=== PATIENT | female | born 1985 | race Caucasian/White ===

== ENCOUNTER 2019-06-15 07:45 | Inpatient (IN) | payer OTHER ==
[2019-06-15] MEDS ORDERED: CITRIC ACID/SODIUM CITRATE 30 ML UNIT-DOSE CUP PO ONE (08:00)
[2019-06-15] MEDS ORDERED: ELECTROLYTE-148 SOLN 1,000 ML IV SCH (08:00)
[2019-06-15] MEDS: ELECTROLYTE-148 SOLN 1,000 ML IV SCH (08:30)
[2019-06-15 08:57] VITALS: BMI 36.1
--- NOTE | 2019-06-15 09:18 | HP ---
Past Medical History - Admission Chief Complaint: repeat lt cs History of Present Illness: none History Source: Patient Limitations to Obtaining History: No Limitations - Past Medical History CHILD DAY CARE PROVIDER: No: Alzheimer's, CVA, Dementia, Migraine, Multiple Sclerosis, Peripheral Neuropathy, Parkinson's, Seizure, Syncope, TIA, Vertigo, Other Cardiovascular: No: AFIB, Aneurysm, Aortic Insufficiency, Aortic Stenosis, CAD, CHF, Deep Vein Thrombosis, HTN, Hyperlipdemia, [place], Mitral Insufficiency, Mitral Stenosis, Murmur, Pulmonary Hypertension, Other Pulmonary: No: Asthma, Bronchitis, Cancer, COPD, O2 Dependent, Pneumonia, Previously Intubated, Pulmonary Embolus, Pulmonary Fibrosis, Sleep Apnea, Other Gastrointestinal: No: Ascites, Cancer, Constipation, Crohn's Disease, Diverticulitis, Diverticulosis, Esophageal Varices, Gastritis, GERD, GI Bleed, Hemorrhoids, Hiatal Hernia, Inflamatory Bowel Disease, Irritable Bowel Disease, Pancreatitis, Peptic Ulcer Disease, Ulcerative Colitis, Other Hepatobiliary: No: Cirrhosis, Cholelithiasis, Cholecystitis, Choledocholithiasis , Hepatitis A, Hepatitis B, Hepatitis C, Other Renal/: No: Renal Failure, Renal Inusuff, BPH, Cancer, Hematuria, Hemodialysis , Neurogenic Bladder, Renal Calculi, UTI, Other Reproductive: No: Ectopic , Endometriosis, Fibroids, PID, Polycystic Ovary Syndrome, Postmenopausal, Other ...: 3 ...Para: 1 ...Term: 1 ...: 0 ...Spon : 1 ...Induced : 0 ...Multiple Gestation: 0 ...LMP: 09/15/18 ... Weeks Gestation by Dates: 39.0 ...EDC by Dates: 06/22/19 Heme/Onc: No: Anemia, B12 Deficiency, Bleeding Disorder, Cancer, Current Chemotherapy, Current Radiation Therapy, Hemochromatosis, Hypercoaguable State, Myeloproliferative Synd, Sickle Cell Disease, Sickle Cell Trait, Thrombocytopenia, Other Infectious Disease: No: AIDS, C-Diff, Herpes Zoster, HIV, MRSA, STD's, Tuberculosis, VREF, Other Psych: No: Addictions, Anxiety, Bipolar, Depression, Panic, Psychosis, Schizophrenia, Other Musculoskeletal: No: Bursitis, Chronic low back pain, Hemiparesis, Hemiplegia, Osteoarthritis, Paraplegia, Other ENT: No: Allergic Rhinitis, Sinusitis, Other Endocrine: No: Genes[place]'s Disease, Samuel's Disease, Diabetes Insipidus, Diabetes Mellitus, Hyperparathyroidism, Hyperthyroidism, Hypothyroidism, Osteopenia, SIADH, Other Dermatology: No: Basal Cell, Cellulitis, Eczema, Melanoma, Psoriasis, Squamous Cell, Other - Past Surgical History Past Surgical History: No: None, AAA Repair, AICD, Amputation, Appendectomy, Arthrosocopy, AV Fistula/Graft, Bariatric Surgery, Breast Biopsy, Bypass, CABG, Carotid Endarterectomy, Cataract Removal, Cholecystectomy, Colectomy, Colonoscopy, Colostomy, Craniotomy, , Cystectomy, Hernia Repair, Hysterectomy, Ileal Conduit, Ileosotomy, Joint Replacement, Kidney Transplant, Laminectomy, Liver Transplant, Mastectomy, Nephrectomy, Oopherectomy, Orchiectomy, Permanent Pacemaker, Prostatectomy, Splenectomy, Stent, Thoracotomy , TURP, Tonsillectomy, Tubal Ligation, Upper Endoscopy, Valve Replacement, Vasectomy, Vein Stripping/Ligation Hx Myomectomy: No Hx Transabdominal Cerclage: No - Advance Directives Advance Directives: Yes: Living Will - Smoking History Smoking history: Never smoked Have you smoked in the past 12 months: No - Alcohol/Substance Use Hx Alcohol Use: No History of Substance Use: reports: None - Social History Usual Living Arrangement: Yes: With Spouse Do you think of yourself as: Declined to answer ADL: Independent History of Recent Travel: No Home Medications - Allergies Allergies/Adverse Reactions: Allergies Allergy/AdvReac Type Severity Reaction Status Date / Time No Known Drug Allergies Allergy Verified 06/15/19 08:27 - Home Medications Home Medications: Ambulatory Orders Vitamins (Sjr) - 1 tab PO DAILY 06/15/19 Family Medical History Family History: Denies Review of Systems - Review of Systems Constitutional: reports: No Symptoms Eyes: reports: No Symptoms HENT: reports: No Symptoms Neck: reports: No Symptoms Cardiovascular: reports: No Symptoms Respiratory: reports: No Symptoms Gastrointestinal: reports: No Symptoms Genitourinary: reports: No Symptoms Breasts: reports: No Symptoms Reported Musculoskeletal: reports: No Symptoms Integumentary: reports: No Symptoms Neurological: reports: No Symptoms Endocrine: reports: No Symptoms Hematology/Lymphatic: reports: No Symptoms Psychiatric: reports: No Symptoms Physical Exam - Maternity Vital Signs: Vital Signs Temperature 98.3 F 06/15/19 08:51 Pulse Rate 78 10/03/19 08:51 Respiratory Rate 20 06/15/19 08:51 Blood Pressure 114/74 06/15/19 08:51 O2 Sat by Pulse Oximetry (%) Constitutional: Yes: Well Nourished, No Distress, Calm Eyes: Yes: WNL, Conjunctiva Clear, EOM Intact HENT: Yes: WNL, Atraumatic, Normocephalic Neck: Yes: WNL, Supple, Trachea Midline Cardiovascular: Yes: WNL, Regular Rate and Rhythm Lungs: Clear to auscultation Breast(s): Yes: WNL - Abdominal Exam/OB Fundal Height: 36 Number of Fetuses: Single Presentation: Vertex Contractions: Yes Regularity: Irregular Intensity: Mild Monitor Mode: External Heart Rate Location: [facility] Category: I Accelerations: Uniform Decelerations: None - Vaginal Exam/OB Vaginal Bleediing: No Speculum Exam: No Dilatation (cm): 1 cm Effacement (%): 20 % Amniotic Membrane Status: Intact Presentation: Vertex/Position Station: -3 - Physical Exam Musculoskeletal: Yes: WNL Extremities: Yes: WNL Edema: Yes Edema: LUE: 1+, RUE: 1+, LLE: 1+ Integumentary: Yes: WNL Deep Tendon Reflex Grade: Normal +2 ...Motor Strength: WNL Psychiatric: Yes: WNL, Alert, Oriented Assessment/Plan for repeat c s
[2019-06-15] MEDS ORDERED: morphine SULFATE/PF 0.5 MG/ML (2cc Syringe - QUVA) EP ONE (09:24)
[2019-06-15] MEDS ORDERED: ONDANSETRON 4 MG/2 ML VIAL IVPUSH PRN (09:24)
[2019-06-15] MEDS ORDERED: morphine SULFATE/PF 0.5 MG/ML (2cc Syringe - QUVA) ONE (10:03)
[2019-06-15] MEDS ORDERED: ceFAZolin SODIUM 1 GM VIAL ONE (10:14)
[2019-06-15] MEDS ORDERED: PHENYLEPHRINE HCL 10 MG/1 ML SINGLE DOSE VIAL ONE (10:16)
[2019-06-15] MEDS ORDERED: OXYTOCIN 20 UNITS in 0.9% NS 20 UNIT/1,000 ML INFUS.BAG IV ONE ×2 (10:22→11:58)
[2019-06-15] MEDS ORDERED: oxyCODONE HCL 5 MG TABLET PO PRN (11:37)
[2019-06-15] MEDS ORDERED: METHYLERGONOVINE MALEATE 0.2 MG/1 ML AMP IM PRN (11:37)
[2019-06-15] MEDS ORDERED: IBUPROFEN 600 MG TABLET (FP) PO PRN (11:37)
[2019-06-15] MEDS ORDERED: SENNOSIDES/DOCUSATE COMBO (SENNA PLUS) TABLET (UD) PO PRN (11:37)
--- NOTE | 2019-06-15 11:42 | OP ---
Operative Note - Note: Operative Date: 06/15/19 Pre-Operative Diagnosis: repeat c s lt Operation: repeat lt c s Findings: can x 2 tight Post-Operative Diagnosis: Same as Pre-op Surgeon: Reid Moraes Machine Dyer: Chaka Castañeda Anesthesiologist/CHIROPRACTOR ASSISTANT: Varun Santana Anesthesia: Spinal Estimated Blood Loss (mls): 450 Operative Report Dictated: Yes
[2019-06-15] MEDS: OXYTOCIN 20 UNITS in 0.9% NS 20 UNIT/1,000 ML INFUS.BAG IV SCH ×2 (12:20→20:37)
--- NOTE | 2019-06-15 12:51 | OP ---
DATE OF OPERATION: 06/15/2019 PREOPERATIVE DIAGNOSES: Previous low transverse section and previous history of abdominoplasty and previous history of gastric bypass. POSTOPERATIVE DIAGNOSES: Previous low transverse section and previous history of abdominoplasty and previous history of gastric bypass, repeat low transverse section. PROCEDURE: Repeat low transverse section. SURGEON: Reid Moraes MD ENGINE MANAGER: JUAN PABLO Bajwa ANESTHESIA: Spinal anesthesia by Varun Santana MD. FINDINGS: There was cord around the neck x2, tight. INDICATION: This is a 34-year-old female patient, 39 weeks , previous history of low transverse section, previous history of abdominoplasty, and constantly complaining of a lot of abdominal pain and pelvic pain because the abdomen was very stretched, tight, and the patient's history of a gastric bypass. So, patient finally reached 39 weeks and taken to the OR for a repeat low transverse section. So, patient was placed on the operating table in supine position after spinal anesthesia was obtained. The patient's abdomen and pelvis were prepped and draped in the usual sterile manner. Following the Pfannenstiel incision, incision was made through the skin and subcutaneous tissue until the fascia was nicked in the midline. The fascia extended bilaterally. Intraperitoneal cavity was entered. We did not see blue Prolene suture; so, fascia had been done by Vicryl in the past. No Prolene suture was seen. So, fascia was extended bilaterally. The intraperitoneal cavity was entered. Bladder flap was not created. Low transverse segment was entered. Baby was delivered from LOT position. Cord around the neck x2, tight was seen. So, baby was handed over to the trade analyst after umbilical cord was doubly clamped and cut. Cord blood gases obtained. Placenta was removed. Uterus was closed in single layer, first layer interlocking Vicryl sutures. Good hemostasis. Both the gutters were cleaned. Both ovaries, fallopian tubes, and uterus were within normal limits. No complications. Patient tolerated the procedure well, draining clear urine. Blood loss about 450 mL. Peritoneum was closed. Fascia was closed. Skin was closed. Transferred to recovery room in stable condition. MD KARAN BETANCOURT/[id number]
[2019-06-15] MEDS: IBUPROFEN 800 MG/8 ML IJ IVPB PRN (17:27)
[2019-06-16] MEDS: IBUPROFEN 800 MG/8 ML IJ IVPB PRN (03:13)
[2019-06-16 08:20] LABS: BASO % 0.3 % (0-2.0); EOS % 0.5 % (0-4.5); HEMATOCRIT 25.7 % (32.4-45.2); HEMOGLOBIN 8.6 GM/dL (10.7-15.3); LYMPH % 15.4 % (8-40); MCH 29.4 pg (25.7-33.7); MCHC 33.3 g/dl (32.0-36.0); MEAN CELL VOLUME 88.1 fl (80-96); MEAN PLT VOLUME 8.5 fl (7.5-11.1); MONO % 8.4 % (3.8-10.2); NEUT % 75.4 % (42.8-82.8); PLATELET COUNT 149 K/MM3 (134-434); RBC 2.91 M/mm3 (3.60-5.2); RDW 15.2 % (11.6-15.6); WHITE BLOOD COUNT 8.2 K/mm3 (4.0-10.0)
[2019-06-16] MEDS: ENOXAPARIN NA (PORCINE) 40 MG/0.4 ML DISP.SYRIN SQ SCH (09:05)
[2019-06-16] MEDS ORDERED: DIPHTH,PERTUSS(ACELL),TET 0.5 ML DISP.SYRIN IM ONE (10:00)
[2019-06-16] MEDS ORDERED: FLU VACC QS2019-20(6MOS UP)/PF 60 MCG/0.5 ML SYRINGE IM ONE (10:00)
[2019-06-16] MEDS ORDERED: FLU VACCINE QUAD 60 MCG/0.5 ML (MDV 19-20) IM ONE (10:00)
--- NOTE | 2019-06-16 10:02 | PN ---
Progress Note (short form) - Note Progress Note: Anesthesia postop note 34 y/o F s/p spinal anesthesia/duramorph for section POD#1, vss, aaox3, sensory motor intact distally, pain well controlled No anesthesia complications.
[2019-06-16] MEDS ORDERED: BISACODYL 10 MG SUPP.RECT RC PRN (11:37)
[2019-06-16] MEDS: ACETAMINOPHEN 325 MG TABLET (FP) PO PRN ×2 (12:35→19:02)
[2019-06-16] MEDS: oxyCODONE HCL 5 MG TABLET PO PRN ×2 (12:36→19:02)
[2019-06-16] MEDS: SIMETHICONE 80 MG TAB.CHEW (FP) PO PRN ×2 (12:37→19:02)
--- NOTE | 2019-06-16 15:26 | PN ---
Post Progress Note Post Day: 1 Type of Delivery: Repeat C/S Vital Signs: Vital Signs Temperature 98.3 F 06/16/19 10:00 Pulse Rate 82 06/16/19 10:00 Respiratory Rate 20 06/16/19 10:00 Blood Pressure 91/51 L 06/16/19 10:00 O2 Sat by Pulse Oximetry (%) 99 06/15/19 13:00 Breast Exam: Yes: Soft Uterus: Yes: Fundus Firm, Fundus below umbilicus Incision: Yes: Dressing dry and intact Abdomen/GI: Yes: Abdomen soft, Passing flatus, Tolerating PO Lochia: Yes: Serosa Lochia, amount: Small Extremities: Yes: Calves non-tender Perineum: Yes: Intact Activity: Ambulating - Labs Labs: CBC WBC 8.2 K/mm3 (4.0-10.0) 06/16/19 07:32 RBC 2.91 M/mm3 (3.60-5.2) L 06/16/19 07:32 Hgb 8.6 GM/dL (10.7-15.3) L 06/16/19 07:32 Hct 25.7 % (32.4-45.2) L D 06/16/19 07:32 MCV 88.1 fl (80-96) 06/16/19 07:32 MCH 29.4 pg (25.7-33.7) 06/16/19 07:32 MCHC 33.3 g/dl (32.0-36.0) 06/16/19 07:32 RDW 15.2 % (11.6-15.6) 06/16/19 07:32 Plt Count 149 K/MM3 (134-434) D 06/16/19 07:32 MPV 8.5 fl (7.5-11.1) 06/16/19 07:32 Absolute Neuts (auto) 6.2 K/mm3 (1.5-8.0) 06/16/19 07:32 Neutrophils % 75.4 % (42.8-82.8) 06/16/19 07:32 Lymphocytes % 15.4 % (8-40) 06/16/19 07:32 Monocytes % 8.4 % (3.8-10.2) 06/16/19 07:32 Eosinophils % 0.5 % (0-4.5) 06/16/19 07:32 Basophils % 0.3 % (0-2.0) 06/16/19 07:32 Nucleated RBC % 0 % (0-0) 06/16/19 07:32
[2019-06-16] MEDS: FERROUS SO4 325 MG TABLET (FP) PO SCH (21:33)
[2019-06-17] MEDS: SIMETHICONE 80 MG TAB.CHEW (FP) PO PRN ×2 (06:39→13:34)
[2019-06-17] MEDS: oxyCODONE HCL 5 MG TABLET PO PRN ×2 (06:39→13:34)
[2019-06-17] MEDS: ACETAMINOPHEN 325 MG TABLET (FP) PO PRN (06:40)
[2019-06-17] MEDS: ELECTROLYTE-148 SOLN 1,000 ML IV SCH (09:47)
[2019-06-17 10:00] VITALS: BP 126/67; PULSE 95; TEMP 97.7
[2019-06-17] MEDS: ENOXAPARIN NA (PORCINE) 40 MG/0.4 ML DISP.SYRIN SQ SCH (10:30)
[2019-06-17] MEDS: FERROUS SO4 325 MG TABLET (FP) PO SCH (10:30)
--- NOTE | 2019-06-17 15:42 | PN ---
Post Progress Note Post Day: 2 Type of Delivery: Repeat C/S Vital Signs: Vital Signs Temperature 97.7 F 06/17/19 09:56 Pulse Rate 95 H 06/17/19 09:56 Respiratory Rate 20 06/17/19 09:56 Blood Pressure 126/67 06/17/19 09:56 O2 Sat by Pulse Oximetry (%) 99 06/15/19 13:00 Breast Exam: Yes: Soft Uterus: Yes: Fundus Firm, Fundus below umbilicus Incision: Yes: Dressing dry and intact, Sutures intact Abdomen/GI: Yes: Abdomen soft, Passing flatus, Tolerating PO Lochia: Yes: Serosa Lochia, amount: Small Extremities: Yes: Calves non-tender Activity: Ambulating - Labs Labs: CBC WBC 8.2 K/mm3 (4.0-10.0) 06/16/19 07:32 RBC 2.91 M/mm3 (3.60-5.2) L 06/16/19 07:32 Hgb 8.6 GM/dL (10.7-15.3) L 06/16/19 07:32 Hct 25.7 % (32.4-45.2) L D 06/16/19 07:32 MCV 88.1 fl (80-96) 06/16/19 07:32 MCH 29.4 pg (25.7-33.7) 06/16/19 07:32 MCHC 33.3 g/dl (32.0-36.0) 06/16/19 07:32 RDW 15.2 % (11.6-15.6) 06/16/19 07:32 Plt Count 149 K/MM3 (134-434) D 06/16/19 07:32 MPV 8.5 fl (7.5-11.1) 06/16/19 07:32 Absolute Neuts (auto) 6.2 K/mm3 (1.5-8.0) 06/16/19 07:32 Neutrophils % 75.4 % (42.8-82.8) 06/16/19 07:32 Lymphocytes % 15.4 % (8-40) 06/16/19 07:32 Monocytes % 8.4 % (3.8-10.2) 06/16/19 07:32 Eosinophils % 0.5 % (0-4.5) 06/16/19 07:32 Basophils % 0.3 % (0-2.0) 06/16/19 07:32 Nucleated RBC % 0 % (0-0) 06/16/19 07:32 Assessment/Plan doing well, ped cleared the baby, will dc pt home today, pt insists of going home
--- NOTE | 2019-06-17 15:45 | DS ---
Physical Exam-CATERING TRUCK DRIVER Vital Signs: Vital Signs Temperature 97.7 F 06/17/19 09:56 Pulse Rate 95 H 06/17/19 09:56 Respiratory Rate 20 06/17/19 09:56 Blood Pressure 126/67 06/17/19 09:56 O2 Sat by Pulse Oximetry (%) 99 06/15/19 13:00 Constitutional: Yes: Well Nourished, No Distress, Calm Eyes: Yes: WNL, Conjunctiva Clear, EOM Intact HENT: Yes: WNL, Atraumatic, Normocephalic Neck: Yes: WNL, Supple, Trachea Midline Cardiovascular: Yes: WNL, Regular Rate and Rhythm Respiratory: Yes: WNL, Regular, CTA Bilaterally Gastrointestinal: Yes: WNL, Normal Bowel Sounds, Soft ...Rectal Exam: Yes: WNL Renal/: Yes: WNL Pelvis: Yes: WNL External Genitalia: Yes: Normal Internal Exam Deferred: No Vaginal Exam: Yes: Normal Cervix: Yes: Normal Uterus: Yes: Normal Adnexa: Normal: Bilateral ....Post : Yes: Uterus firm, Uterus non-tender Breast(s): Yes: WNL Musculoskeletal: Yes: WNL Extremities: Yes: WNL Edema: Yes Edema: LUE: 1+, RUE: 1+, LLE: 1+, RLE: 1+ Integumentary: Yes: WNL Wound/Incision: Yes: Clean/Dry, Well Approximated Neurological: Yes: WNL, Alert, Oriented ...Motor Strength: WNL Psychiatric: Yes: WNL, Alert, Oriented Labs: CBC, BMP 06/16/19 07:32 Delivery - Delivery Section: Repeat Type of Anesthesia: Spinal Episiotomy/Laceration: None EBL (cc): 450 Delivery, Single - Stages of Labor Date of Delivery: 06/15/19 Time of Delivery: 10:25 Time Placenta Delivered: 10:26 - Condition of 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 Present: Yes Name: Armando Berry Infant Gender: Male Weight: 3.26 kg Position: Right, OA Total Hours ROM (Hrs/Mins): 0hrs 2min - 1 Minute Total Score: 9 5 Minutes Total Score: 9 - Feeding Plan Initial Plan: Exclusive throughout hospitalization Discharge Summary Problems reviewed: Yes Reason For Visit: C SECTION Procedures: Principal: repeat lt c s Hospital Course: good Health Concerns: none Plan of Treatment: bed rest as much as possible Goals: return to work in 6 weeks Condition: Good - Instructions Diet, Activity, Other Instructions: regular Disposition: HOME - Home Medications Comprehensive Discharge Medication List: Ambulatory Orders Vitamins (Sjr) - 1 tab PO DAILY 06/15/19 Prescription Drug Monitoring Program (I-STOP) results: I-STOP reviewed and no issues identified
--- NOTE | 2019-06-20 12:14 | PATH ---
Surgical Pathology Report Patient Name: BRANDON HILL Med. Rec. #: [id number] /Age/Gender: 1985 (Age: 34) / F Account: [id number] Location: [facility] OBS/SALES DIRECTOR Taken: 06/15/2019 Received: 06/16/2019 Reported: 06/20/2019 Physicians: Reid Moraes MD Specimen(s) Received PLACENTA Clinical History 1spAB, in 2000, gastric bypass Final Diagnosis PLACENTA: THIRD TRIMESTER PLACENTA. TRIVASCULAR CORD. MEMBRANES WITH NO DIAGNOSTIC ABNORMALITIES. Electronically Signed Andrew Corcoran M.D. Gross Description The specimen is received fresh labeled placenta and is a 434 gram, 15 x15 x 2.5cm. placenta with attached membranes and umbilical cord. The attached membranes are glistening, translucent, and insert marginally. The umbilical cord measures 50 cm. in length and averages 0.8 cm. in diameter. The cord inserts centrally, 4 centimeter to the nearest margin. No true knots or strictures are identified. Cut surface of the umbilical cord reveals 3 vessels. Sectioning reveals red-brown, spongy parenchyma. No lesions are identified. Shuttle Fixer sections are submitted in three cassettes as follows: 1- membrane rolls and umbilical cord; 2-3- full thickness sections of placenta [email or web address]/06/16/2019 [email or web address]/06/16/2019
== END 2019-06-17 18:15 | disposition home or self-care (01) | DRG 540 ==
LOC: JLDR 07:45 → J3W 13:58
PROVIDERS: ADMIT Obstetrics & Gynecology; ATTEND Obstetrics & Gynecology
PROC: 10D00Z1 Extraction of Products of Conception, Low, Open Approach (ICD-10-PCS; principal; 2019-06-15)
DX: O34.219 Maternal care for unspecified type scar from previous cesarean delivery (principal); O69.1XX0 Labor and delivery complicated by cord around neck, with compression, not applicable or unspecified; Z3A.39 39 weeks gestation of pregnancy; Z37.0 Single live birth; Z98.84 Bariatric surgery status
CPT/HCPCS: 36415; 85025; 88307-TC; 90686; 90715